=== PATIENT | male | born 1990 | race African-American/Black ===

== ENCOUNTER 2016-07-21 01:00 | Emergency (ER) | payer MEDICAID ==
[~2016-07-21] VITALS: Ht 190.5 cm; Wt 77.1 kg
[2016-07-21 01:13] VITALS: BP 143/91
[2016-07-21] MEDS ORDERED: ACETAMINOPHEN/CODEINE#3 (300/30mg) TAB PO ONE (02:45)
== END 2016-07-21 03:01 | disposition home or self-care (01) ==
LOC: ER 01:02
DX: K08.89 Other specified disorders of teeth and supporting structures (principal)

== ENCOUNTER 2024-04-16 19:39 | Emergency (ER) | payer MEDICAID ==
[~2024-04-16] VITALS: Ht 190.5 cm; Wt 78.6 kg
[2024-04-16] MEDS: SODIUM CHLORIDE 0.9% 1,000 ML IV ONE (20:51)
[2024-04-16] MEDS: ONDANSETRON HCL 4 MG/2 ML VIAL IV ONE (20:51)
[2024-04-16] MEDS: levETIRAcetam 1000 mg/100ml 100 ML IV ONE (20:51)
--- NOTE | 2024-04-16 21:05 | ED.PDOC ---
History of Present Illness HPI Comments 33 y/o M, with a Hx of seizures and EtOH and marijuana use, is BIBA for s/p multiple seizure episodes, today. Per EMS report, patient's family called after witnessing the patient having 3x sequential seizure episodes of 1x minute duration each at home, this evening. On scene, patient was found by EMS staff w /o signs of any trauma, injuries, or incontinence, with patient returning to his baseline at a GCS 15 and having a blood glucose of 193, pulse rate of 110, a blood pressure of 160/112, and all remaining vitals within normal limits. At time of evaluation, patient c/o nausea and vomiting symptoms and admits to being non-compliant, lately, with his seizure medications for the past 7 months and having no recollection of its dosage or name. Patient states on no recent stress, injuries, sick contact, travel, spoiled food intake, or substance use/exposure. Patient endorses no additional relevant or pertinent past medical, surgical, or family Hx. Patient denies having any injuries, headache, abdominal pain, diarrhea, fever, chills, or other associated symptoms or modifiers at this time. Chief Complaint: Seizure Time Seen by MD: 20:25 Primary Care Provider: NONE Reviewed Notes: Nurses Notes, Branch Logistics Supervisor Notes, Medications, Allergies Allergies: Coded Allergies: NO KNOWN ALLERGIES (Unverified , 03/05/14) Information Source: Patient, Emergency Med Personnel Mode of Arrival: EMS Severity: Moderate Timing: Hours Duration: Minutes Prehospital treatment: 12 Lead EKG, Accucheck (193), Pediatric Rn, Other (18G LAC) Past Medical History PAST MEDICAL HISTORY: Seizures Surgical History: Denies all surgeries Family History Family History: Unobtainable Social History Smoker: Non-Smoker Alcohol: Occasionally Drugs: Denies Drug Use Lives In: Home Constitutional: denies: chills, diaphoresis, fatigue, fever, malaise, sweats, weakness, others EENTM: denies: blurred vision, double vision, ear bleeding, ear discharge, ear drainage, ear pain, ear ringing, eye pain, eye redness, hearing loss, mouth pain, mouth swelling, nasal discharge, nose bleeding, nose congestion, nose pain, photophobia, tearing, throat pain, throat swelling, voice changes, others Respiratory: denies: cough, hemoptysis, orthopnea, SOB at rest, shortness of breath, SOB with excertion, stridor, wheezing, others Cardiovascular: denies: chest pain, dizzy spells, diaphoresis, Dyspnea on exertion, edema, irregular heart beat, left arm pain, lightheadedness, palpitations, PND, syncope, others Gastrointestinal: reports: nausea, vomiting; denies: abdomen distended, abdominal pain, blood streaked bowels, constipated, diarrhea, dysphagia, difficulty swallowing, hematemesis, melena, poor appetite, poor fluid intake, rectal bleeding, rectal pain, others Genitourinary: denies: burning, dysuria, flank pain, frequency, hematuria, incontinence, penile discharge, penile sore, pain, testicle pain, testicle swelling, urgency, others Neurological: reports: seizure; denies: dizziness, fainting, headache, left sided numbness, left sided weakness, numbness, paresthesia, pre-existing deficit, right sided numbness, right sided weakness, speech problems, tingling, tremors, weakness, others Musculoskeletal: denies: back pain, gout, joint pain, joint swelling, muscle pain, muscle stiffness, neck pain, others Integumetry: denies: bruises, change in color, change in hair/nails, dryness, laceration, lesions, lumps, rash, wounds, others Allergic/Immunocompromised: denies: Difficulty Healing, Frequent Infections, Hives, Itching, others Hematologic/Lymphatic: denies: anemia, blood clots, easy bleeding, easy bruising, swollen glands, others Endocrine: denies: excessive hunger, excessive sweating, excessive thirst, excessive urination, flushing, intolerance to cold, intolerance to heat, un explained weight gain, unexplained weight loss, others Psychiatric: denies: anxiety, bipolar disorder, depression, hopeless, panic disorder, schizophrenia, sleepless, suicidal, others All Other Systems: Reviewed and Negative Physical Exam General Appearance: No Apparent Distress, Normal HEENT: Normal ENT Inspection, Pharynx Normal, TMs Normal Neck: Full Range of Motion, Non-Tender, Normal, Normal Inspection Respiratory: Chest Non-Tender, Lungs Clear, No Accessory Muscle Use, No Respiratory Distress, Normal Breath Sounds Cardiovascular: No Edema, No JVD, No Murmur, No Gallop, Normal Peripheral Pu lses, Regular Rate/Rhythm Breast Exam: Deferred Gastrointestinal: No Organomegaly, Non Tender, No Pulsatile Mass, Normal Bowel Sounds, Soft, Other (patient actively vomiting ) Genitalia: Deferred Pelvic: Deferred Rectal: Deferred Extremities: No calf tenderness, Normal capillary refill, Normal inspection, Normal range of motion, Non-tender, No pedal edema Musculoskeletal : Apperance: Normal Neurologic: Alert, guard entrance registrar II-XII nml as Tested, No Motor Deficits, Normal Affect, Normal Mood, No Sensory Deficits Cerebellar Function: Normal Reflexes: Normal Skin: Dry, Normal Color, Warm Lymphatic: No Adenopathy Was a procedure done? Was a procedure done?: No Differential Dx Considerations may include: uncontrolled seizures, pseudoseizures, medication non-compliancy, electrolyte imbalance X-Ray, Labs, Meds, VS Vital Signs Date Time Temp Pulse Resp B/P (MAP) Pulse Ox O2 Delivery O2 Flow Rate FiO2 04/16/24 23:50 97 14 137/62 (87) 97 04/16/24 21:30 93 23 157/81 (106) 97 04/16/24 20:27 113 24 169/112 (131) 97 04/16/24 19:45 97.6 110 18 160/112 (128) 95 Lab Test 04/16/24 20:47 Range/Units White Blood Count 5.5 4.4-10.8 10^3/uL Red Blood Count 4.34 L 4.5-5.90 10^6/uL Hemoglobin 15.3 13.5-17.5 g/dL Hematocrit 43.2 41.0-53.0 % Mean Corpuscular Volume 99.4 80.0-100.0 fL Mean Corpuscular Hemoglobin 35.2 H 28.0-32.0 pg Mean Corpuscular Hemoglobin Concent 35.4 32.0-36.0 g/dL Red Cell Distribution Width 12.6 11.8-14.3 % Platelet Count 206 140-450 10^3/uL Mean Platelet Volume 7.9 6.9-10.8 fL Neutrophils (%) (Auto) 89.2 H 37.0-80.0 % Lymphocytes (%) (Auto) 3.4 L 10.0-50.0 % Monocytes (%) (Auto) 6.8 0.0-12.0 % Eosinophils (%) (Auto) 0.0 0.0-7.0 % Basophils (%) (Auto) 0.6 0.0-2.0 % Neutrophils # (Auto) 4.9 1.6-8.6 10 ^3/uL Lymphocytes # (Auto) 0.2 L 0.4-5.4 10 ^3/uL Monocytes # (Auto) 0.4 0-1.3 10 ^3/uL Eosinophils # (Auto) 0 0-0.8 10 ^3/uL Basophils # (Auto) 0 0-0.2 10 ^3/uL Nucleated Red Blood Cells 0.0 % Sodium Level 133 L 136-145 mmol/L Potassium Level 4.0 3.5-5.1 mmol/L Chloride Level 94 L 98-107 mmol/L Carbon Dioxide Level 21 20-31 mmol/L Anion Gap 18 H 5-15 Blood Urea Nitrogen 17 9-23 mg/dL Creatinine 1.31 H 0.700-1.30 mg/dL Glomerular Filtration Rate Calc 74 >90 mL/min BUN/Creatinine Ratio 13.0 10.0-20.0 Serum Glucose 269 H 74-106 mg/dL Calcium Level 11.3 H 8.7-10.4 mg/dL Current Medications Medications (Trade) Dose Ordered Sig/Marcie Route Start Time Stop Time Status Last Admin Sodium Chloride 1,000 ml @ 1,000 mls/hr Q1H ONCE IV 04/16/24 20:30 04/16/24 21:29 DC 04/16/24 20:51 Ondansetron HCl (Zofran) 4 mg ONCE ONCE IV 04/16/24 20:30 04/16/24 20:31 DC 04/16/24 20:51 Levetiracetam 100 ml @ 400 mls/hr ONCE ONCE IV 04/16/24 20:30 04/16/24 20:44 DC 04/16/24 20:51 Time of 1ST Reevaluation: 20:55 Reevaluation 1ST: Unchanged Patient Education/Counseling: Diagnosis, Treatment Family Education/Counseling: No Family Present Departure 1 Departure Time of Disposition: 00:58 (Patient has returned to baseline feeling well. Patient with breakthrough seizures in the setting of medication noncompliance. We will discharge patient home with outpatient follow up) Impression: Primary Impression: Breakthrough seizure Disposition: 01 HOME / SELF CARE / HOMELESS Condition: Stable Additional Instructions: You had a breakthrough seizure today. It is important to take your seizure medication. You should stay well rested and well hydrated. You should follow up with your regular doctor within 1 week. If your symptoms worsen or you have any other concerns then please return to the emergency room. Discharged With: Self Critical Care Note Critical Care Time?: No Stability Stability form required: No Heart Score Heart Score: Heart Score Response (Comments) Value History N/A 0 EKG N/A 0 Age N/A 0 Risk Factors N/A 0 Troponin N/A 0 Total 0 I personally scribed for GLADIS SHEEHAN MD ([email or web address]) on 04/16/24 at 21:05. Electronically submitted by Chico Renner ([email or web address]). GLADIS SHEEHAN MD Apr 16, 2024 21:05
[2024-04-16 21:17] LABS: Basophils # (auto) 0 10 ^3/uL (0-0.2); Eosinophils # (auto) 0 10 ^3/uL (0-0.8); Lymphocytes # (auto) 0.2 10 ^3/uL (0.4-5.4); Mean Corpuscular Hemoglobin 35.2 pg (28.0-32.0); Monocytes # (auto) 0.4 10 ^3/uL (0-1.3); Neutrophils # (auto) 4.9 10 ^3/uL (1.6-8.6); White Blood Cell 5.5 10^3/uL (4.4-10.8)
[2024-04-16 21:19] LABS: Basophils % (auto) 0.6 % (0.0-2.0); Hematocrit 43.2 % (41.0-53.0); Hemoglobin 15.3 g/dL (13.5-17.5); Lymphocytes % (auto) 3.4 % (10.0-50.0); Mean Corpuscular Hgb Conc. 35.4 g/dL (32.0-36.0); Mean Corpuscular Volume 99.4 fL (80.0-100.0); Monocytes % (auto) 6.8 % (0.0-12.0); Neutrophils % (auto) 89.2 % (37.0-80.0); Platelet Count (auto) 206 10^3/uL (140-450); Red Blood Cells 4.34 10^6/uL (4.5-5.90); Red Cell Distribution Width 12.6 % (11.8-14.3)
[2024-04-16 21:22] LABS: Chloride 94 mmol/L (98-107); Sodium 133 mmol/L (136-145)
[2024-04-16 21:23] LABS: Anion Gap 18 (5-15); Carbon Dioxide 21 mmol/L (20-31)
[2024-04-16 21:24] LABS: Calcium 11.3 mg/dL (8.7-10.4)
[2024-04-16 21:28] LABS: Glucose 269 mg/dL (74-106)
[2024-04-16 21:29] LABS: Blood Urea Nitrogen 17 mg/dL (9-23)
[2024-04-17 02:00] VITALS: BP 140/92; PULSE 99; RESP 14; O2SAT 99
== END 2024-04-17 03:28 | disposition home or self-care (01) ==
LOC: EDUNIT# 19:39 → EDBD 19:39 → ER 19:39
DX: G40.909 Epilepsy, unspecified, not intractable, without status epilepticus (principal)
CPT/HCPCS: 36415; 80048; 85025; 96365; 96375; 99285; J1953; J2405; J7030